=== PATIENT | male | born 1960 | race African-American/Black ===

== ENCOUNTER 2017-07-09 19:51 | Inpatient (IN) | payer SELFPAY ==
[~2017-07-09] VITALS: Ht 180.3 cm; Wt 65.8 kg
[2017-07-09] MEDS ORDERED: SODIUM CHLORIDE 0.9% 1000ML BAG (SEPSIS BOLUS) IV ONE (20:45)
[2017-07-09 21:31] LABS: CHLORIDE 103 mEq/L (98-107)
[2017-07-09 21:34] LABS: INR 1.4; PROTHROMBIN TIME 14.7 sec (9.4-11.6)
[2017-07-09 21:39] LABS: BASOPHILS % 0.8 % (0.0-2.0); EOSINOPHILS % 2.4 % (0.0-5.0); LYMPHOCYTES % 10.1 % (20.0-50.0); MEAN CORPUSCULAR HEMOGLOBIN 28.7 pg (28.0-32.0); MEAN PLATELET VOLUME 7.8 fl (7.4-10.4); MONOCYTES % 5.3 % (2.0-8.0); NEUTROPHILS % 81.4 % (40.0-76.0); PLATELET 577 x1000/uL (130-400); RED BLOOD CELL COUNT 2.35 mill/uL (4.7-6.1); RED CELL DISTRIBUTION WIDTH 16.2 % (11.6-14.6)
[2017-07-09 21:43] LABS: HEMATOCRIT. 20.9 % (42.0-52.0); HEMOGLOBIN. 6.7 g/dL (14.0-18.0)
[2017-07-09] MEDS ORDERED: SODIUM CHLORIDE 0.9% 1,000 ML IV ONE (22:29)
[2017-07-09 23:51] LABS: PHOSPHORUS 2.1 mg/dL (2.5-4.9)
[2017-07-09 23:54] LABS: CLARITY URINE CLOUDY (CLEAR); COLOR URINE YELLOW (YELLOW); KETONES URINE 1+ (NEGATIVE); LEUKOCYTE ESTERASE URINE 2+ (NEGATIVE); NITRITE URINE POSITIVE (NEGATIVE); OCCULT BLOOD URINE NEGATIVE (NEGATIVE); PROTEIN URINE TRACE (NEGATIVE); SPECIFIC GRAVITY URINE 1.017 (1.005-1.030); UROBILINOGEN URINE 0.2 E.U./dL (0.2-1.0)
[2017-07-10] VITALS (9 sets, daily range): BP systolic 118–160; BP diastolic 50–81
[2017-07-10] MEDS ORDERED: LEVOFLOXACIN 750MG PREMIX 150 ML IV SCH (00:35)
[2017-07-10] MEDS ORDERED: DEXT 5%/0.45% NACL 1000ML 1,000 ML IV SCH (01:16)
[2017-07-10] MEDS ORDERED: ACETAMINOPHEN 650MG/20.3ML UDC GT PRN (01:30)
[2017-07-10] MEDS ORDERED: IPRATROPIUM/ALBUTEROL 0.5-3(2.5)MG/3ML NEB INH PRN (01:30)
[2017-07-10] MEDS ORDERED: GUAIFENESIN 200MG/10ML SUGAR FREE UDC PO PRN (01:30)
[2017-07-10] MEDS ORDERED: CLONIDINE 0.1MG TABLET PO PRN (01:30)
[2017-07-10] MEDS ORDERED: HYDROCODONE/ACETAMINOPHEN 5/325MG TABLET PO PRN (01:30)
[2017-07-10] MEDS ORDERED: ONDANSETRON HCL 4MG/2ML VIAL IV PRN (01:30)
[2017-07-10] MEDS ORDERED: MAGNESIUM/ALUMINUM HYDROXIDE/SIMETHICONE 30ML UDC PO PRN (01:30)
[2017-07-10] MEDS ORDERED: ACETAMINOPHEN 650MG SUPP PR PRN (01:30)
[2017-07-10] MEDS ORDERED: DIPHENHYDRAMINE 50MG/ML VIAL IV PRN (01:30)
[2017-07-10] MEDS ORDERED: ACETAMINOPHEN 325MG TABLET PO PRN (01:30)
[2017-07-10] MEDS ORDERED: NA PHOS,M-B/NA PHOS,DI-BA ENEMA 118ML PR PRN (01:30)
[2017-07-10] MEDS ORDERED: DOCUSATE SODIUM 100MG CAPSULE PO PRN (01:30)
[2017-07-10 01:49] LABS: TOTAL IRON BINDING CAPACITY 86 ug/dL (250-450)
[2017-07-10 04:31] LABS: FOLIC ACID (FOLATE) SERUM 2.3 ng/mL (>5.38)
[2017-07-10] MEDS ORDERED: MEGE400O23 PO (04:50)
[2017-07-10] MEDS ORDERED: LACT10SO7 PO (04:50)
[2017-07-10] MEDS ORDERED: OXYC10TA48 PO (04:50)
[2017-07-10] MEDS ORDERED: TAMS0.4C31 PO (04:50)
[2017-07-10] MEDS ORDERED: SENN-76 PO (04:50)
[2017-07-10] MEDS ORDERED: RIVA20TA MT (04:50)
[2017-07-10] MEDS: DEXT 5%/0.45% NACL 1000ML 1,000 ML IV SCH (05:37)
[2017-07-10] MEDS: SODIUM CHLORIDE 0.9% INJ 3ML FLUSH IVF SCH ×3 (05:38→21:20)
[2017-07-10] MEDS ORDERED: POTASSIUM PHOS,M-BASIC-D-BASIC 10 MMOL in DEXT 5% WATER 246.6667 ML IV SCH ×2 (06:00→08:00)
[2017-07-10] MEDS ORDERED: PAMIDRONATE DISODIUM 60 MG in SODIUM CHLORIDE 0.9% 1,000 ML IV ONE (06:00)
[2017-07-10] MEDS: LACTULOSE 20G/30ML UDC PO SCH (09:00)
[2017-07-10] MEDS ORDERED: RIVAROXABAN 20 MG TABLET PO SCH (09:00)
[2017-07-10] MEDS: SENNOSIDES/DOCUSATE SOD 8.6/50MG TABLET PO SCH ×3 (09:00→21:20)
[2017-07-10] MEDS: MEGESTROL ACETATE 40MG TABLET PO SCH (09:05)
[2017-07-10] MEDS: PANTOPRAZOLE 40MG DR TABLET PO SCH (09:05)
[2017-07-10] MEDS: TAMSULOSIN HCL 0.4MG SR CAPSULE PO SCH (09:05)
[2017-07-10] MEDS: HYDROCODONE/ACETAMINOPHEN 10/325MG TABLET PO PRN ×2 (09:09→15:04)
[2017-07-10 09:12] LABS: BASOPHILS % 0.3 % (0.0-2.0); EOSINOPHILS % 2.9 % (0.0-5.0); LYMPHOCYTES % 7.7 % (20.0-50.0); MEAN CORPUSCULAR HEMOGLOBIN 28.9 pg (28.0-32.0); MEAN CORPUSCULAR VOLUME 90.4 fL (80.0-94.0); MEAN PLATELET VOLUME 7.3 fl (7.4-10.4); MONOCYTES % 8.9 % (2.0-8.0); NEUTROPHILS % 80.2 % (40.0-76.0); PLATELET 368 x1000/uL (130-400); RED BLOOD CELL COUNT 1.77 mill/uL (4.7-6.1); RED CELL DISTRIBUTION WIDTH 16.3 % (11.6-14.6)
[2017-07-10 09:16] LABS: HEMOGLOBIN. 5.1 g/dL (14.0-18.0)
[2017-07-10 09:29] LABS: CHLORIDE 124 mEq/L (98-107)
[2017-07-10 09:35] LABS: *AMPHETAMINES SCREEN URINE NEGATIVE (NEGATIVE); *BARBITURATES SCREEN URINE NEGATIVE (NEGATIVE); *BENZODIAZEPINES SCREEN URINE NEGATIVE (NEGATIVE); *COCAINE SCREEN URINE NEGATIVE (NEGATIVE); CANNABINOID URINE SCREEN PRESUMTIVE POSITIVE (NEGATIVE); METHADONE URINE SCREEN NEGATIVE (NEGATIVE); OPIATES URINE SCREEN PRESUMTIVE POSITIVE (NEGATIVE); PHENCYCLIDINE URINE SCREEN NEGATIVE (NEGATIVE)
[2017-07-10] MEDS ORDERED: POTASSIUM CHLORIDE 20MEQ TABLET SR PO NR ×2 (10:30→18:00)
[2017-07-10] MEDS: LEVOFLOXACIN 500MG TABLET PO SCH (14:47)
[2017-07-10] MEDS: FOLIC ACID/VITAMIN B COMP W-C TABLET PO SCH (18:14)
[2017-07-10] MEDS: CALCITONIN,SALMON, 3.7 ML NASAL SPRAY ONENSTRL SCH (18:15)
[2017-07-10 19:46] LABS: BASOPHILS % 0.7 % (0.0-2.0); HEMATOCRIT. 28.1 % (42.0-52.0); HEMOGLOBIN. 9.3 g/dL (14.0-18.0); LYMPHOCYTES % 19.6 % (20.0-50.0); MEAN CORPUSCULAR HEMOGLOBIN 29.1 pg (28.0-32.0); MEAN CORPUSCULAR VOLUME 87.9 fL (80.0-94.0); MEAN PLATELET VOLUME 7.7 fl (7.4-10.4); MONOCYTES % 7.5 % (2.0-8.0); NEUTROPHILS % 67.2 % (40.0-76.0); PLATELET 503 x1000/uL (130-400); RED CELL DISTRIBUTION WIDTH 15.3 % (11.6-14.6)
[2017-07-10 19:55] LABS: CHLORIDE 104 mEq/L (98-107)
[2017-07-10] MEDS ORDERED: FAMOTIDINE 20MG TABLET PO SCH (21:00)
[2017-07-11] VITALS (7 sets, daily range): BP systolic 123–151; BP diastolic 82–87
[2017-07-11] MEDS: DEXT 5%/0.45% NACL 1000ML 1,000 ML IV SCH ×3 (03:03→20:57)
[2017-07-11] MEDS: SODIUM CHLORIDE 0.9% INJ 3ML FLUSH IVF SCH ×3 (06:24→20:57)
[2017-07-11] MEDS: PANTOPRAZOLE 40MG DR TABLET PO SCH (06:25)
[2017-07-11] MEDS: LACTULOSE 20G/30ML UDC PO SCH (10:58)
[2017-07-11] MEDS: SENNOSIDES/DOCUSATE SOD 8.6/50MG TABLET PO SCH ×2 (10:58→20:56)
[2017-07-11] MEDS: MEGESTROL ACETATE 40MG TABLET PO SCH (10:59)
[2017-07-11] MEDS: LEVOFLOXACIN 500MG TABLET PO SCH (10:59)
[2017-07-11] MEDS: FOLIC ACID/VITAMIN B COMP W-C TABLET PO SCH (10:59)
[2017-07-11] MEDS: HYDROCODONE/ACETAMINOPHEN 10/325MG TABLET PO PRN ×2 (10:59→17:50)
[2017-07-11] MEDS: TAMSULOSIN HCL 0.4MG SR CAPSULE PO SCH (10:59)
[2017-07-11] MEDS: CALCITONIN,SALMON, 3.7 ML NASAL SPRAY ONENSTRL SCH (11:01)
[2017-07-11 12:08] LABS: BASOPHILS % 0.8 % (0.0-2.0); HEMATOCRIT. 30.8 % (42.0-52.0); HEMOGLOBIN. 10.1 g/dL (14.0-18.0); LYMPHOCYTES % 12.2 % (20.0-50.0); MEAN CORPUSCULAR HEMOGLOBIN 28.9 pg (28.0-32.0); MEAN PLATELET VOLUME 7.3 fl (7.4-10.4); MONOCYTES % 6.1 % (2.0-8.0); NEUTROPHILS % 76.9 % (40.0-76.0); PLATELET 528 x1000/uL (130-400); RED CELL DISTRIBUTION WIDTH 15.4 % (11.6-14.6)
[2017-07-11 12:15] LABS: CHLORIDE 102 mEq/L (98-107)
[2017-07-11 12:26] LABS: HDL CHOLESTEROL 30 mg/dL (40-59)
[2017-07-11 12:27] LABS: LDL CHOLESTEROL 133 mg/dL (5-100)
[2017-07-11 12:32] LABS: PREALBUMIN 6.2 mg/dL (20.0-40.0)
[2017-07-11] MEDS ORDERED: POTASSIUM CHLORIDE 20MEQ TABLET SR PO NR (17:45)
[2017-07-11] MEDS: PREDNISONE 20MG TABLET PO SCH (17:49)
[2017-07-12 04:00] VITALS: BP 140/91
[2017-07-12] MEDS: PANTOPRAZOLE 40MG DR TABLET PO SCH (06:37)
[2017-07-12] MEDS: SODIUM CHLORIDE 0.9% INJ 3ML FLUSH IVF SCH ×2 (06:40→14:00)
[2017-07-12 07:21] LABS: CHLORIDE 103 mEq/L (98-107)
[2017-07-12 07:34] LABS: PHOSPHORUS 1.8 mg/dL (2.5-4.9)
[2017-07-12 07:41] LABS: BASOPHILS % 0.2 % (0.0-2.0); EOSINOPHILS % 0.1 % (0.0-5.0); HEMOGLOBIN. 9.6 g/dL (14.0-18.0); LYMPHOCYTES % 8.7 % (20.0-50.0); MEAN CORPUSCULAR HEMOGLOBIN 29.4 pg (28.0-32.0); MEAN CORPUSCULAR VOLUME 88.3 fL (80.0-94.0); MEAN PLATELET VOLUME 7.7 fl (7.4-10.4); MONOCYTES % 4.2 % (2.0-8.0); NEUTROPHILS % 86.8 % (40.0-76.0); PLATELET 527 x1000/uL (130-400); RED BLOOD CELL COUNT 3.28 mill/uL (4.7-6.1); RED CELL DISTRIBUTION WIDTH 15.4 % (11.6-14.6)
[2017-07-12 07:44] VITALS: BP 143/85
[2017-07-12] MEDS ORDERED: LEVO500T2 PO (07:48)
[2017-07-12] MEDS ORDERED: CALC3.8S ONENSTRL (07:48)
[2017-07-12] MEDS: DEXT 5%/0.45% NACL 1000ML 1,000 ML IV SCH (08:00)
[2017-07-12] MEDS: CALCITONIN,SALMON, 3.7 ML NASAL SPRAY ONENSTRL SCH (09:00)
[2017-07-12] MEDS: MEGESTROL ACETATE 40MG TABLET PO SCH (11:47)
[2017-07-12] MEDS: SENNOSIDES/DOCUSATE SOD 8.6/50MG TABLET PO SCH (11:47)
[2017-07-12] MEDS: FOLIC ACID/VITAMIN B COMP W-C TABLET PO SCH (11:48)
[2017-07-12] MEDS: TAMSULOSIN HCL 0.4MG SR CAPSULE PO SCH (11:48)
[2017-07-12] MEDS: LEVOFLOXACIN 500MG TABLET PO SCH (11:48)
[2017-07-12] MEDS: LACTULOSE 20G/30ML UDC PO SCH (11:49)
[2017-07-12] MEDS: PREDNISONE 20MG TABLET PO SCH (11:49)
[2017-07-12 11:54] VITALS: BP 150/91
[2017-07-12] MEDS ORDERED: POTASSIUM PHOS,M-BASIC-D-BASIC 15 MMOL in SODIUM CHLORIDE 0.9% 245 ML IV NR (14:00)
[2017-07-12 15:53] VITALS: BP 150/91
[2017-07-12 18:59] VITALS: BP 130/74
[2017-07-12 20:00] VITALS: BP 140/89
== END 2017-07-12 21:15 | disposition home or self-care (01) | DRG 463 ==
LOC: ER 19:51 → 6WST 23:42 → EDBEDREQTM 23:48 → EDBEDREQ 23:48 → EDBEDREQSVC 07-10 01:25 → EDBEDREQTM 07-10 01:25 → 6WST 07-11 07:08
PROVIDERS: ADMIT Family Medicine; ATTEND Family Medicine
PROC: 30233N1 Transfusion of Nonautologous Red Blood Cells into Peripheral Vein, Percutaneous Approach (ICD-10-PCS; principal; 2017-07-09)
DX: N39.0 Urinary tract infection, site not specified (principal); C79.51 Secondary malignant neoplasm of bone; E46 Unspecified protein-calorie malnutrition; C34.90 Malignant neoplasm of unspecified part of unspecified bronchus or lung; D64.81 Anemia due to antineoplastic chemotherapy; E83.52 Hypercalcemia; E16.2 Hypoglycemia, unspecified; E66.9 Obesity, unspecified; E86.0 Dehydration; E87.6 Hypokalemia; F12.90 Cannabis use, unspecified, uncomplicated; F17.200 Nicotine dependence, unspecified, uncomplicated; I10 Essential (primary) hypertension; Z74.01 Bed confinement status; Z79.01 Long term (current) use of anticoagulants; Z88.1 Allergy status to other antibiotic agents; Z90.49 Acquired absence of other specified parts of digestive tract; Z92.21 Personal history of antineoplastic chemotherapy; Z92.3 Personal history of irradiation; Z68.20 Body mass index [BMI] 20.0-20.9, adult
CPT/HCPCS: 36415; 36430; 70450; 71045; 80048; 80053; 80061; 80305; 81003; 82330; 82607; 82746; 82962; 83540; 83550; 83605; 83735; 84100; 84134; 84484; 85025; 85610; 86850; 86900; 86920; 87040; 87077; 87086; 87186; 93005; 93970; 96374; 97163; 99291; J1200; J1956; J2430; J3490; J7030; J7040; J7050; J7060; J7512; P9016